=== PATIENT | female | born 1945 | race Caucasian/White ===

== ENCOUNTER 2018-11-13 21:46 | Observation (INO) | payer MEDICARE, OTHER ==
[~2018-11-13] VITALS: Ht 157.5 cm; Wt 66.0 kg
[~2018-11-13 21:46] MED LIST: AMLO-350 PO; ATOR20TA38 PO; ESCI20TA PO; TRAZ-149 PO
--- NOTE | 2018-11-13 22:27 | ERD ---
ER Documentation Chief Complaint Chief Complaint chest pain/sob x 2 hours HPI 73-year-old female who presents to the emergency room with anxiety. The patient states that she has normal and regular anxiety attacks. Today she had an anxiety attack that felt very similar nature in character to her regular anxiety attacks however it lasted approximately 2 hours which is longer than usual. She took anxiety medication and now having relief. During this timeframe she felt her heart racing and had some mild discomfort in her chest that she had difficulty characterizing. She denies any pleuritic pain or significant shortness of breath despite what was noted in triage. At this time she is mostly asymptomatic. She denies any diaphoresis or nausea with this, no exertional symptoms. Patient denies cardiac history, exercise intolerance or exertional chest pain or shortness of breath over the last several weeks. ROS All systems reviewed and are negative except as per history of present illness. 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 Eyes: Pupils equally reactive, EOM intact ENT: Moist mucous membranes Neck: Supple, no lymphadenopathy Respiratory: Lungs clear bilaterally, no distress Cardiovascular: RRR, no murmurs, rubs, or gallops Abdominal: Soft, non-tender, non-distended, no peritoneal signs : Deferred MSK: No edema, no unilateral swelling, 5/5 strength Neurologic: Alert and oriented, moving all extremities, normal speech, no focal weakness, no cerebellar signs Skin: No rash Psych: Normal mood Result Diagram: 11/13/18221011/13/182210 Results 24 hrs Laboratory Tests Test 11/13/18 22:11 11/14/18 01:07 White Blood Count 8.5 10^3/ul Red Blood Count 4.51 10^6/ul Hemoglobin 13.3 g/dl Hematocrit 42.0 % Mean Corpuscular Volume 93.1 fl Mean Corpuscular Hemoglobin 29.5 pg Mean Corpuscular Hemoglobin Concent 31.7 g/dl Red Cell Distribution Width 13.2 % Platelet Count 194 10^3/UL Mean Platelet Volume 10.7 fl Immature Granulocytes % 0.200 % Neutrophils % 60.5 % Lymphocytes % 29.7 % Monocytes % 8.1 % Eosinophils % 1.3 % Basophils % 0.2 % Nucleated Red Blood Cells % 0.0 /100WBC Immature Granulocytes # 0.020 10^3/ul Neutrophils # 5.1 10^3/ul Lymphocytes # 2.5 10^3/ul Monocytes # 0.7 10^3/ul Eosinophils # 0.1 10^3/ul Basophils # 0.0 10^3/ul Nucleated Red Blood Cells # 0.0 10^3/ul Sodium Level 144 mmol/L Potassium Level 3.5 mmol/L Chloride Level 105 mmol/L Carbon Dioxide Level 30 mmol/L Anion Gap 9 Blood Urea Nitrogen 17 mg/dl Creatinine 1.01 mg/dl Est Glomerular Filtrat Rate mL/min mL/min Glucose Level 76 mg/dl Calcium Level 9.7 mg/dl Troponin I 0.017 ng/ml 0.086 ng/ml Current Medications Medications Dose Sig/Shona Start Time Status Last (Trade) Ordered Route PRN Stop Time Admin Dose Reason Admin Aspirin 162 mg ONCE ONCE 11/14/18 DC 11/13/18 (Aspirin) PO 00:00 23:51 11/14/18 00:01 Procedures/MDM EKG, MONITORS, & DIAGNOSTIC IMAGING: EKG: I reviewed and interpreted a 12-lead EKG. Rhythm: Normal sinus rhythm ST Changes: No contiguous ST segment elevations, nonspecific repolarization abnormality but no ST depressions. T waves: No contiguous T wave inversions Impression: No evidence of acute cardiac ischemia Repeat EKG: EKG: I reviewed and interpreted a 12-lead EKG. Rhythm: Normal sinus rhythm ST Changes: No contiguous ST segment elevations T waves: No contiguous T wave inversions Impression: No evidence of acute cardiac ischemia Chest x-ray: I reviewed and interpreted a 1 view of the chest Mediastinum: No enlargement Cardiac silhouette: No cardiomegaly Airspace: Clear lung garay bilaterally without evidence of pneumothorax Bones: No evidence of fracture PROCEDURES: None LAB INTERPRETATION: * Troponin negative but slightly increasing MEDICAL DECISION MAKING: The patient's history, physical exam and clinical presentation is most consistent with anxiety reaction. The patient gives a very clear history of anxiety, very similar history of similar symptoms in the past related to her anxiety. Today's episode lasted longer which is what concerned the patient. I have a very low pretest probability for cardiac etiology however given the patient's age and comorbidities the patient warrants EKG and troponin screening. Based on the patient's clinical exam and history and risk factors, I have a much lower clinical concern for pulmonary embolism, acute aortic dissection, pneumothorax, pneumonia, cardiac tamponade HEART Score: 3-4 MACE Rate: Potentially up to 16.6% Shared Decision Making: We had a conversation regarding risk stratification, MACE rate, and the risks, benefits, alternatives of disposition planning options. Disposition planning: I discussed and recommended hospitalization versus serial enzymes. Patient would like to consider options. ER COURSE: * Patient asymptomatic upon my assessment. * Patient's repeat troponin is slightly increasing. The patient no longer has chest pain. Aspirin provided. The patient will be admitted for serial enzymes. CONSULTATION: None DISPOSITION PLAN: Telemetry admission for management of chest pain to rule out acute coronary sy ndrome, serial enzymes, risk stratification and consideration of provocative testing CONSULTATION: Accepting care team and consultations: I discussed the current laboratory data, diagnostic imaging and emergency care provided. Admitting team: Dr. Crenshaw Admitting team indication: Insurance directed Departure Diagnosis: Primary Impression: Chest pain Chest pain type: unspecified Qualified Codes: R07.9 - Chest pain, unspecified Additional Impression: Anxiety reaction Condition: Stable BRAIN PALMA MD Nov 13, 2018 22:27
[2018-11-14] MEDS ORDERED: ASPIRIN 81 MG TAB PO ONE
[2018-11-14] MEDS ORDERED: ACETAMINOPHEN 325 MG TAB PO PRN ×2 (02:30→03:00)
[2018-11-14] MEDS ORDERED: ONDANSETRON 4 MG INJ IV PRN ×2 (02:30→03:00)
[2018-11-14] MEDS ORDERED: LORAZEPAM 0.5 MG TAB PO PRN (03:00)
[2018-11-14] MEDS ORDERED: morphine 2 MG INJ IV PRN (03:00)
[2018-11-14] MEDS ORDERED: NACL 0.9% 3 ML SYG IV SCH (03:00)
[2018-11-14] MEDS ORDERED: NITROGLYCERIN (SL) 0.4 MG TAB SL PRN (03:00)
--- NOTE | 2018-11-14 03:03 | HP ---
Date/Time of Note Date/Time of Note DATE: 11/14/18 TIME: 03:02 Assessment/Plan VTE Prophylaxis SCD applied (from Nsg): Yes Pharmacological prophylaxis: NA/contraindicated Pharm contraindication: low risk/ambulating Lines/Catheters IV Catheter Type (from Nrsg): Saline Lock Assessment/Plan Hospital Course This is a 73-year female being admitted to the telemetry floor for observation for: #1 atypical chest pain: Possibly secondary to underlying panic attack. Given that the patient's symptoms did not resolve with her Ativan there is concern for possible ACS. Initial troponin was 0.017 followed by repeat being 0.086 we will continue to trend troponins. Patient at the current time is asymptomatic. EKG is nonischemic. PRN nitro/morphine, will check hemoglobin A 1C, lipid panel, TSH. Consult cardiology #2 anxiety: Co PRN Ativan, will need to continue escitalopram #3 hyperlipidemia: Continue statin once we can from the home med #4 DVT GI prophylaxis: SCDs, no GI prophylaxis indicated further treatment strategy will be implemented as per the clinical course. Result Diagram: 11/13/18 2211 11/13/18 2211 Results 24hrs Laboratory Tests Test 11/13/18 22:11 11/14/18 01:07 White Blood Count 8.5 Red Blood Count 4.51 Hemoglobin 13.3 Hematocrit 42.0 Mean Corpuscular Volume 93.1 Mean Corpuscular Hemoglobin 29.5 Mean Corpuscular Hemoglobin Concent 31.7 L Red Cell Distribution Width 13.2 Platelet Count 194 Mean Platelet Volume 10.7 H Immature Granulocytes % 0.200 Neutrophils % 60.5 Lymphocytes % 29.7 Monocytes % 8.1 Eosinophils % 1.3 Basophils % 0.2 Nucleated Red Blood Cells % 0.0 Immature Granulocytes # 0.020 Neutrophils # 5.1 Lymphocytes # 2.5 Monocytes # 0.7 Eosinophils # 0.1 Basophils # 0.0 Nucleated Red Blood Cells # 0.0 Sodium Level 144 Potassium Level 3.5 Chloride Level 105 Carbon Dioxide Level 30 Anion Gap 9 Blood Urea Nitrogen 17 Creatinine 1.01 H Est Glomerular Filtrat Rate mL/min Glucose Level 76 Calcium Level 9.7 Troponin I 0.017 0.086 HPI/ROS Admit Date/Time Admit Date/Time Hx of Present Illness Chief complaint: Shortness of breath, chest pressure, palpitations This is a 73-year-old female who presented to the emergency room with complaints of anxiety and chest pressure. Patient states she has a history of anxiety and has had anxiety attacks. She was out with her family to dinner and then when she came home she started having what she thought was a panic attack. She felt chest pressure and sweating. She states that she took 2 over Lorazepam that she takes for her panic attacks however these did not improve her symptoms. She states that her symptoms continue to last for approximately 2 hours which made her concerned and to come to the emergency department. She also felt like her heart was racing for longer than usual. She does feel better now currently in the emergency department. Allergies: NKDA Medications: Lorazepam Escitalopram Amlodipine/ARB Statin ROS Const: As per HPI Eyes : No pain discharge or redness or change in visual acuity ENT: No pain, sore throat, congestion, congestion, dysphagia or discharge Respiratory: No shortness of breath, cough, sputum, wheezing, or pleuritic pain Cardiovascular: As per HPI GI : no change in appetite, abdominal pain, nausea, vomiting, diarrhea, constipation, or change in the color his stool Genitourinary: No dysuria, hematuria, flank pain , discharge or CVA tenderness Musculoskeletal: No joint pain, back pain, neck pain, restricted range of motion in neck or joints Skin: No rash, bruising or hives Neuro: No headache, dizziness, syncope, seizure, focal weakness Endocrine: No polyuria, polydipsia, temperature intolerance Psych: As per HPI PMH/Family/Social Past Medical History Hypertension Anxiety Hyperlipidemia Medications Current Medications Ondansetron HCl (Zofran Inj) 4 mg ER BRIDGE PRN IV NAUSEA/VOMITING; Start 11/14/18 at 02:30; Stop 11/15/18 at 02:29 Acetaminophen (Tylenol Tab) 650 mg ER BRIDGE PRN PO .MILD PAIN 1-3 OR TEMP; St art 11/14/18 at 02:30; Stop 11/15/18 at 02:29 IV Flush (NS 3 ml) 3 ml PER PROTOCOL IV ; Start 11/14/18 at 03:00 Lorazepam (Ativan) 0.5 mg Q8H PRN PO .ANXIETY; Start 11/14/18 at 03:00 Ondansetron HCl (Zofran Inj) 4 mg Q6H PRN IV NAUSEA/VOMITING; Start 11/14/18 at 03:00 Nitroglycerin (Nitroglycerin (Sl Tab) 0.4 Mg) 1 tab Q5M PRN SL .CHEST PAIN; Start 11/14/18 at 03:00 Acetaminophen (Tylenol Tab) 650 mg Q6H PRN PO .PAIN 1-3 OR TEMP; Start 11/14/18 at 03:00 Morphine Sulfate (morphine) 2 mg Q4H PRN IV .PAIN 7-10; Start 11/14/18 at 03:00 Coded Allergies: No Known Drug Allergies (Verified Allergy, Unknown, 11/13/18) Past Surgical History Past Surgical Hx: no surgical history Family History Significant Family History: no pertinent family hx Social History Alcohol Use: none Smoking Status: Never smoker Drug Use: none Exam/Review of Systems Vital Signs Vitals Vital Signs Date Temp Pulse Resp B/P (MAP) Pulse Ox O2 O2 Flow FiO2 Time Delivery Rate 11/14/18 77 16 112/75 96 Room Air 02:31 (87) 11/13/18 97.5 21:49 Exam Exam General: Patient is a pleasant female currently lying in bed in no acute distress HEENT: Atraumatic, normocephalic. The pupils are equal, round and reactive. Extraocular motor are intact Neck: Supple with full range of motion. No rigidity or meningismus Chest: Nontender Lungs: Clear to auscultation bilaterally no crackles rales or wheezing Heart: Normal S1-S2, Regular rhythm and rate. No murmur, S3, or S4 Abdomen: Soft , nontender, nondistended , bowel sounds are present. No guarding no rebound tenderness , No masses or organomegaly. No costovertebral temporal angle mass Extremities: Normal to inspection, no edema no cyanosis Neurologic: Normal mental status, speech normal, cranial nerves II through XII are intact, motor and sensory are intact, no focal weakness Additional Comments EKG: Rhythm: Normal sinus rhythm ST Changes: No contiguous ST segment elevations T waves: No contiguous T wave inversions Impression: No evidence of acute cardiac ischemia PROCEDURE: XR Chest, 1 View CLINICAL INDICATION: Chest pain. TECHNIQUE: Frontal view of the chest. COMPARISON: None FINDINGS: LUNGS: Suboptimal inspiration, causing crowding of the pulmonary markings. Mild atelectasis at the lung bases. No consolidative pulmonary infiltrates noted. PLEURAL SPACE: Unremarkable. No pneumothorax. HEART: Unremarkable. No cardiomegaly. MEDIASTINUM: Unremarkable. BONES/JOINTS: Degenerative spine changes are noted. VASCULATURE: The thoracic aorta is tortuous and atherosclerotic. IMPRESSION: 1. Suboptimal inspiration, causing crowding of the pulmonary markings. 2. Mild atelectasis at the lung bases. No consolidative pulmonary infiltrates noted. RPTAT: [facility] Silva Medina, Physician Triple Valve Tester Date Time Electronically viewed and signed by Silva Medina, Physician Triple Valve Tester on 11/13/2018 22:36 RmC/ CC: BRAIN PALMA MD [id number] TRAN DOUGLAS Nov 14, 2018 03:03
[2018-11-14 07:51] VITALS: BP 146/83; PULSE 53; RESP 20
[2018-11-14 08:31] VITALS: Ht 157.5 cm; Wt 66.0 kg
--- NOTE | 2018-11-14 11:34 | PDOCDIS ---
Discharge Instructions CONDITION [id number] Patient Condition: [id number] Good HOME CARE INSTRUCTIONS: [id number] Diet Instructions: [id number] Regular ACTIVITY: [id number] Activity Restrictions: [id number] No Restrictions FOLLOW UP/APPOINTMENTS Follow-up Plan FOLLOW UP WITH YOUR PCP IN 1-2 WEEKS BIA FLORIAN Nov 14, 2018 11:22
--- NOTE | 2018-11-14 15:20 | DS ---
Date/Time of Note Date/Time of Note DATE: 11/14/18 TIME: 15:18 Discharge Summary Admission/Discharge Info Admit Date/Time Nov 14, 2018 at 02:30 Discharge Date/Time Nov 14, 2018 at 12:06 Discharge Diagnosis #1 atypical chest pain secondary to anxiety ACS ruled out Instructed on relaxation measures #2 anxiety: As above On Lexapro #3 hyperlipidemia Continue meds #4 hypertension Continue meds Patient Condition: Good Hospital Course Patient is a 73-year-old female with history of hypertension and dyslipidemia as well as anxiety who presents with chest pain secondary to severe anxiety and panic attack. ACS ruled out, patient stable for DC with A1c and lipid panel within normal limits, on the day of discharge patient's vitals, labs and physical exam are stable. Patient instructed on relaxation measures. Home Meds Reported Medications Atorvastatin Calcium* (Atorvastatin Calcium*) 20 Mg Tablet, 20 MG PO QHS, #30 TAB 11/14/18 Amlodipine/Valsartan (Amlodipine-Valsartan 5-160 mg) 1 Each Tablet, 1 TAB PO DAILY, #30 TAB 11/14/18 Escitalopram Oxalate* (Lexapro*) 20 Mg Tablet, 20 MG PO DAILY, #30 TAB 11/14/18 Trazodone Hcl* (Desyrel*) 50 Mg Tab, 50-100 MG PO QHS, #60 TAB 11/14/18 Follow-up Plan FOLLOW UP WITH YOUR PCP IN 1-2 WEEKS Primary Care Provider Not On Staff Doctor Time spent on discharge: > 30 minutes BIA FLORIAN Nov 14, 2018 15:20
--- NOTE | 2018-11-14 15:22 | RADRPT ---
Echocardiogram Report Patient Name: Raymundo FUnt ID: [id number] : 1945 (73y )Study Date: 11/14/2018 9:12:19 AM Gender: FAccession #: [id number] Tech: Keith Nuno [facility] Location: [address] Ref.Physician: TRAN DOUGLAS Height(Cm): BSA: Weight(Kg): Quality: AdequateOrder Physician: TRAN DOUGLAS Account #: Procedures: Echocardiographic Report: Transthoracic echocardiogram with complete 2D, M-Mode, and doppler examination. Indications: Chest Pain. Measurements: 2D/M Mode Doppler Measurement Value Normal Range Measurement Value Normal Range LVIDd 2D 3.5 [ 3.8 - 5.2 ] cm AV Peak Sarath 1.7 [ 100.0 - 170.0 ] cm/sec LVIDs 2D 2.4 [ 2.2 - 3.5 ] cm AV Peak PG 12.0 [ 2.0 - 9.0 ] mmHg LVPWd 2D 1.1 [ 0.6 - 0.9 ] cm LVOT Peak Sarath 1.3 [ 70.0 - 110.0 ] cm/sec IVSd 2D 2.0 [ 0.6 - 0.9 ] cm LVOT Peak PG 6.0 [ 2.0 - 6.0 ] mmHg AoR Diam 2D 3.1 [ 2.3 - 3.1 ] cm MV E Peak Sarath 0.9 [ 60.0 - 130.0 ] cm/sec EDV 2D 50.5 [ 46.0 - 106.0 ] ml MV A Peak Sarath 0.7 [ 100.0 - 120.0 ] cm/sec ESV 2D 20.0 [ 14.0 - 42.0 ] ml MV E/A 1.2 [ 0.8 - 1.5 ] ratio EF 2D 60.4 [ 54.0 - 74.0 ] percent MV Decel Time 222 [ 104 - 258 ] msec LA Dimen 2D 3.8 [ 2.7 - 3.8 ] cm Lat E` Sarath 0.1 [ 10.0 - 15.0 ] cm/sec Lateral E/E` 7.1 [ 1.0 - 2.0 ] ratio Med E` Sarath 0.1 cm/sec MV E/A 1.2 [ 0.8 - 1.5 ] ratio TR Peak Sarath 2.6 [ 100.0 - 280.0 ] cm/sec TR Peak PG 28.0 mmHg RVSP 38.0 [ 10.0 - 36.0 ] mmHg Findings: Left Ventricle: Normal left ventricular systolic function. Normal left ventricular cavity size. Sigmoid septum. Ejection fraction is visually estimated at 65 %. Abnormal Diastolic Function. Right Ventricle: Normal right ventricular size. Normal right ventricular systolic function. Left Atrium: The left atrium is normal in size. Right Atrium: The right atrium is normal in size. Mitral Valve: Mild mitral leaflet calcification. Mild mitral annular calcification. Mild mitral valve regurgitation. Aortic Valve: No hemodynamically significant aortic stenosis by doppler. Aortic cusps appear mildly calcified. Trace to mild aortic valve regurgitation. Tricuspid Valve: Normal appearance of the tricuspid valve. The estimated Peak RVSP is 38 mmHg. There is mild tricuspid regurgitation. Pericardium: Normal pericardium with no significant pericardial effusion. Aorta: Normal aortic root. IVC: Dilated IVC with respiratory collapse consistent with elevated right atrial pressure. Conclusions: Normal left ventricular systolic function. Normal left ventricular cavity size. Sigmoid septum. Ejection fraction is visually estimated at 65 %. Abnormal Diastolic Function. No hemodynamically significant aortic stenosis by doppler. Aortic cusps appear mildly calcified. Trace to mild aortic valve regurgitation. Mild mitral leaflet calcification. Mild mitral annular calcification. Mild mitral valve regurgitation. Normal appearance of the tricuspid valve. The estimated Peak RVSP is 38 mmHg. There is mild tricuspid regurgitation. Dilated IVC with respiratory collapse consistent with elevated right atrial pressure. Electronically Signed By: Freddy Barrett 2018-11-14 15:21:14 PDT
== END 2018-11-14 12:06 | disposition home or self-care (01) ==
LOC: E/R 21:46 → TEL 11-14 02:30
PROVIDERS: ADMIT Family Medicine; ATTEND Family Medicine
DX: R07.89 Other chest pain (principal); F41.9 Anxiety disorder, unspecified; E78.5 Hyperlipidemia, unspecified
CPT/HCPCS: 36415; 71045; 80048; 80053; 80061; 83036; 83735; 84443; 84484; 85025; 93005; 93306; 99285; G0378